=== PATIENT | female | born 1990 | race Caucasian/White ===

== ENCOUNTER 2022-08-13 05:30 | Emergency (ER) | payer SELFPAY ==
[2022-08-13 05:38] VITALS: TEMP 98.1; BMI 33.2
[2022-08-13] MEDS: ALBUTEROL SO4 2.5/IPRATROPIUM 0.5 INH SOL 3 ML VIAL.NEB. NEB SCH ×3 (06:20→07:00)
[2022-08-13 06:31] LABS: BASO % 0.8 % (0-2.0); EOS % 2.5 % (0-4.5); HEMATOCRIT 39.5 % (32.4-45.2); HEMOGLOBIN 12.8 GM/dL (10.7-15.3); LYMPH % 31.6 % (8-40); MCH 25.2 pg (25.7-33.7); MCHC 32.4 g/dl (32.0-36.0); MEAN PLT VOLUME 8.5 fl (7.5-11.1); MONO % 7.2 % (3.8-10.2); NEUT % 57.9 % (42.8-82.8); PLATELET COUNT 298 10^3/uL (134-434); RBC 5.07 M/mm3 (3.60-5.2); RDW 14.7 % (11.6-15.6); WHITE BLOOD COUNT 7.5 K/mm3 (4.0-10.0)
[2022-08-13 06:43] LABS: POTASSIUM 4.4 mmol/L (3.5-5.1)
[2022-08-13 06:45] LABS: CALCIUM 9.3 mg/dL (8.5-10.1)
[2022-08-13 06:46] LABS: ALBUMIN 3.5 g/dl (3.4-5.0); BLOOD UREA NITROGEN 17.4 mg/dL (7-18)
[2022-08-13 07:20] LABS: BILIRUBIN,TOTAL 0.3 mg/dL (0.2-1); CREATININE 0.4 mg/dL (0.55-1.3); TOT PROT 7.2 g/dl (6.4-8.2)
[2022-08-13 07:57] LABS: EPI CELLS 7 /uL (0-25.1); HYALINE CASTS 0 /uL (0-3.1); PH,URINE 5.5 (5.0-8.0); URINE APPEARANCE CLEAR; URINE BACTERIA 1 /uL (0-1359); URINE BILIRUBIN NEGATIVE (NEGATIVE); URINE COLOR YELLOW; URINE GLUCOSE (UA) 3+ (NEGATIVE); URINE KETONE 4+ (NEGATIVE); URINE LEUK ESTERASE NEGATIVE (NEGATIVE); URINE NITRITE NEGATIVE (NEGATIVE); URINE PROTEIN 1+ (NEGATIVE); URINE RBC 23 /uL (0-23.9); URINE UROBILINOGEN 0.2 mg/dL (0.2-1.0); URINE WBC 1 /uL (0-25.8)
[2022-08-13] MEDS: ALBUTEROL SO4 HFA INHALER IH ONE ×2 (08:23→08:27)
[2022-08-13 08:28] LABS: INR 0.96 (0.83-1.09); PROTHROMBIN TIME (PATIENT) 11.1 SEC (9.7-13.0)
[2022-08-13] MEDS ORDERED: ALBUTEROL SO4 HFA INHALER IH ONE (08:28)
[2022-08-13 08:30] LABS: ACTIVATED PTT 28.9 SECONDS (25.2-36.5)
[2022-08-13] MEDS ORDERED: SODIUM CHLORIDE 0.9% 500 ML INFUS.BAG IV ONE (09:19)
[2022-08-13 10:31] VITALS: PULSE 92
[2022-08-13 10:40] VITALS: BP 134/79; RESP 20
== END 2022-08-13 11:04 | disposition home or self-care (01) ==
LOC: JER 05:30
PROC: 3E0F7GC Introduction of Other Therapeutic Substance into Respiratory Tract, Via Natural or Artificial Opening (ICD-10-PCS; principal; 2022-08-13)
PROC: 3E0F7GC Introduction of Other Therapeutic Substance into Respiratory Tract, Via Natural or Artificial Opening (ICD-10-PCS; 2022-08-13)
DX: J45.21 Mild intermittent asthma with (acute) exacerbation (principal); E10.65 Type 1 diabetes mellitus with hyperglycemia; R06.02 Shortness of breath; R07.89 Other chest pain; R05.9 Cough, unspecified; R00.0 Tachycardia, unspecified; R10.30 Lower abdominal pain, unspecified; Z20.822 Contact with and (suspected) exposure to COVID-19
CPT/HCPCS: 0241U-QW; 36415; 71045-TC-FY; 80053; 81003; 83880; 84703; 85025; 85379; 85610; 85730; 87086; 93005; 93010; 99285-25